=== PATIENT | female | born 1965 | race African-American/Black ===

== ENCOUNTER 2022-02-23 20:50 | Emergency (ER) | payer BC, MEDICARE ==
[2022-02-23] MEDS ORDERED: Sodium Chloride 0.9% 1,000 ML ONE (21:26)
[2022-02-23] MEDS ORDERED: Sodium Chloride 0.9% 1,000 ML IV ONE (21:35)
[2022-02-23 22:17] LABS: ANION GAP 10.7 mmol/L (5-15)
[2022-02-23] MEDS ORDERED: LORazepam 2 MG/ML SDV IVPUSH ONE (22:35)
[2022-02-23] MEDS ORDERED: LORazepam 2 MG/ML SDV ONE (22:37)
[2022-02-23] MEDS ORDERED: Iopamidol 755 Mg/ML 75 ML Bottle IVPUSH ONE (22:57)
[2022-02-23] MEDS ORDERED: Sodium Chloride 0.9% 50 ML IV SCH (23:00)
== END 2022-02-23 23:55 | disposition home or self-care (01) ==
LOC: KA.ED 20:50
DX: R13.10 Dysphagia, unspecified (principal); Z88.6 Allergy status to analgesic agent; Z88.2 Allergy status to sulfonamides; Z79.899 Other long term (current) drug therapy
CPT/HCPCS: 36415; 70491; 80053; 81003; 83690; 84443; 85025; 96361; 96374; 99284-25; J2060; J7030; Q9967

== ENCOUNTER 2022-10-03 14:35 | Emergency (ER) | payer MEDICARE, OTHER ==
[2022-10-03] MEDS ORDERED: Sodium Chloride 0.9% 10 ML Syringe FLUSH PRN (14:59)
[2022-10-03] MEDS ORDERED: Ondansetron 4 MG/2 ML SDV IVPUSH ONE (15:00)
[2022-10-03] MEDS ORDERED: Pantoprazole 40 MG Vial IVPUSH ONE (15:14)
[2022-10-03] MEDS ORDERED: Famotidine 20 MG/2 ML SDV IVPUSH ONE (15:14)
[2022-10-03 15:32] LABS: ANION GAP 14.5 mmol/L (5-15)
== END 2022-10-03 16:30 | disposition home or self-care (01) ==
LOC: KA.ED 14:35
DX: K21.9 Gastro-esophageal reflux disease without esophagitis (principal); I10 Essential (primary) hypertension; J45.909 Unspecified asthma, uncomplicated; E03.9 Hypothyroidism, unspecified; E66.9 Obesity, unspecified; Z68.43 Body mass index [BMI] 50.0-59.9, adult; Z88.8 Allergy status to other drugs, medicaments and biological substances; Z88.6 Allergy status to analgesic agent; Z79.899 Other long term (current) drug therapy
CPT/HCPCS: 71046; 80053; 82150; 83690; 84484; 85025; 93005; 93010; 96374; 96375; 99284; 99284-25; C9113; J2405; J3490